=== PATIENT | female | born 1965 | race Two or more races ===

== ENCOUNTER 2018-09-18 23:11 | Emergency (ER) | payer BC ==
[2018-09-18 23:51] VITALS: BP 155/89; PULSE 75; TEMP 99; BMI 25.6
--- NOTE | 2018-09-19 00:42 | PDOC ---
*Physical Exam - Vital Signs Last Vital Signs Temp Pulse Resp BP Pulse Ox 99 F 75 20 155/89 99 09/18/18 23:46 09/18/18 23:46 09/18/18 23:46 09/18/18 23:46 09/18/18 23:46 ED Treatment Course - LABORATORY CBC & Chemistry Diagram: 09/19/18 02:14 09/19/18 02:14 Medical Decision Making - Medical Decision Making 09/19/18 00:42 52-year-old female presenting to the ED with a complaint of dysuria. She has flank pain as well. ? hematuria noted. Laboratory Tests 09/19/18 09/19/18 01:06 02:14 WBC 9.0 Neutrophils % 76.0 Lymphocytes % 12.9 Urine Blood 2+ H Ur Leukocyte Esterase 3+ H Urine WBC (Auto) 422 Urine RBC (Auto) 5 Pt seen by Midlevel Provider under my direct supervision Pt interviewed and examined Ancillary studies reviewed CT - no evidence of obstructing stone Ceftriaxone given Will discharge on Cefuroxime Return precautions given I agree with plan as outlined by Midlevel Provider 09/19/18 03:17 *DC/Admit/Observation/Transfer Diagnosis at time of Disposition: Pyelonephritis - Prescriptions Prescriptions: Cefuroxime Axetil [Cefuroxime] 500 mg PO BID #20 tablet - Referrals - Patient Instructions - Post Discharge Activity
--- NOTE | 2018-09-19 00:42 | PDOC ---
History of Present Illness - General Chief Complaint: Urinary Problem Stated Complaint: URINARY PROBLEM Time Seen by Provider: 09/19/18 00:41 History Source: Patient - History of Present Illness Initial Comments: 09/19/18 01:33 52 year old female c/o urinary frequency x 3 days with increasing pain to suprapubic area and right flank pain. reports feels chills and nausea, denies fever, vomiting Past History - Past Medical History Allergies/Adverse Reactions: Allergies Allergy/AdvReac Type Severity Reaction Status Date / Time No Known Allergies Allergy Verified 09/19/18 02:23 Home Medications: Ambulatory Orders Cefuroxime Axetil [Cefuroxime] 500 mg PO BID #20 tablet 09/19/18 Phenazopyridine HCl [Pyridium -] 100 mg PO PC #14 tablet 09/19/18 - Suicide/Smoking/Psychosocial Hx Smoking History: Unknown if ever smoked Hx Alcohol Use: No Drug/Substance Use Hx: No Review of Systems - Review of Systems Able to Perform ROS?: Yes Is the patient limited [place] Citizen proficient: No Constitutional: Yes: Chills. No: Symptoms Reported, See HPI, Diaphoresis, Fever , Loss of Appetite, Malaise, Night Sweats, Weakness, Weight Stable, Unintentional Wgt. Loss, Unexplained wgt Loss, Other ABD/GI: Yes: Other (suprapubic pain) : Yes: Burning, Dysuria, Frequency, Flank Pain, Hematuria, Urgency *Physical Exam - Vital Signs Last Vital Signs Temp Pulse Resp BP Pulse Ox 99 F 75 20 155/89 99 09/18/18 23:46 09/18/18 23:46 09/18/18 23:46 09/18/18 23:46 09/18/18 23:46 - Physical Exam General Appearance: Yes: Appropriately Dressed Respiratory/Chest: positive: Lungs Clear, Normal Breath Sounds Gastrointestinal/Abdominal: positive: Tender, Other Musculoskeletal: positive: CVA Tenderness, CVA Tenderness (R) Extremity: positive: Normal Capillary Refill, Normal Inspection Neurologic: positive: Fully Oriented ED Treatment Course - LABORATORY CBC & Chemistry Diagram: 09/19/18 02:14 09/19/18 02:14 Medical Decision Making - Medical Decision Making 09/19/18 02:28 CTAP spiral: Cholelithiasis or sludge. Nonobstructing nephrolithiasis *DC/Admit/Observation/Transfer Diagnosis at time of Disposition: Pyelonephritis - Discharge Dispostion Disposition: HOME - Prescriptions Prescriptions: Cefuroxime Axetil [Cefuroxime] 500 mg PO BID #20 tablet Phenazopyridine HCl [Pyridium -] 100 mg PO PC #14 tablet - Referrals - Patient Instructions Printed Discharge Instructions: DI for Kidney Infection Additional Instructions: drink plenty of fluids follow up with your doctor as soon as possible take pyridium for painful urination . it can change the color of your urine to orange. take cefuroxime as ordered and complete the dose - Post Discharge Activity
[2018-09-19] MEDS ORDERED: ONDANSETRON 4 MG/2 ML VIAL IVPUSH ONE (01:21)
[2018-09-19 01:22] LABS: URINE APPEARANCE CLOUDY; URINE BILIRUBIN NEGATIVE (<2.0 mg/dL); URINE COLOR LTYELLOW; URINE GLUCOSE (UA) NEGATIVE (NEGATIVE); URINE KETONE NEGATIVE (NEGATIVE); URINE LEUK ESTERASE 3+ (NEGATIVE); URINE NITRITE NEGATIVE (NEGATIVE); URINE PROTEIN 2+ (NEGATIVE); URINE UROBILINOGEN NEGATIVE mg/dL (0.2-1.0)
[2018-09-19] MEDS ORDERED: SODIUM CHLORIDE 1,000 ML IV STA (01:24)
[2018-09-19 01:26] LABS: EPI CELLS RARE /HPF (FEW); URINE BACTERIA MODERATE /hpf (NONE SEEN)
[2018-09-19] MEDS ORDERED: CEFTRIAXONE 1 GM in DEXTROSE 5%-WATER - 50 ML IVPB ONE (02:21)
[2018-09-19] MEDS ORDERED: PHENAZOPYRIDINE HCL 100 MG TABLET (FP) PO ONE (02:21)
[2018-09-19] MEDS ORDERED: ONDANSETRON 4 MG/2 ML VIAL ONE (02:22)
[2018-09-19] MEDS ORDERED: PHENAZOPYRIDINE HCL 100 MG TABLET (FP) ONE (02:22)
[2018-09-19] MEDS ORDERED: CEFTRIAXONE 1 GM/50 ML BAG ONE (02:22)
[2018-09-19 02:27] LABS: BASO % 0.7 % (0-2.0); EOS % 2.4 % (0-4.5); HEMATOCRIT 41.6 % (32.4-45.2); LYMPH % 12.9 % (8-40); MCH 32.7 pg (25.7-33.7); MCHC 33.7 g/dl (32.0-36.0); MEAN CELL VOLUME 96.8 fl (80-96); MEAN PLT VOLUME 11.5 fl (7.5-11.1); PLATELET COUNT 217 K/MM3 (134-434); RDW 13.2 % (11.6-15.6)
[2018-09-19 02:49] LABS: ALBUMIN 4.2 g/dl (3.4-5.0); ALK PHOS 69 U/L (45-117); ANION GAP 8 MMOL/L (8-16); BILIRUBIN,TOTAL 0.4 mg/dL (0.2-1); BLOOD UREA NITROGEN 13 mg/dL (7-18); CALCIUM 9.6 mg/dL (8.5-10.1); CHLORIDE 101 mmol/L (98-107); CO2 28 mmol/L (21-32); CREATININE 0.7 mg/dL (0.55-1.3); GLUCOSE,RANDOM 92 mg/dL (74-106); SGOT/AST 26 U/L (15-37); SGPT/ALT 27 U/L (13-61); SODIUM 137 mmol/L (136-145); TOT PROT 8.1 g/dl (6.4-8.2)
== END 2018-09-19 03:59 | disposition home or self-care (01) ==
LOC: JER 23:11
PROC: 3E0337Z Introduction of Electrolytic and Water Balance Substance into Peripheral Vein, Percutaneous Approach (ICD-10-PCS; principal; 2018-09-18)
PROC: 3E03329 Introduction of Other Anti-infective into Peripheral Vein, Percutaneous Approach (ICD-10-PCS; 2018-09-18)
PROC: 3E033GC Introduction of Other Therapeutic Substance into Peripheral Vein, Percutaneous Approach (ICD-10-PCS; 2018-09-18)
DX: N12 Tubulo-interstitial nephritis, not specified as acute or chronic (principal); N20.0 Calculus of kidney
CPT/HCPCS: 36415; 74176; 80053; 81003; 81015; 85025; 87040; 87086; 87186; 99281-25; J7030

== ENCOUNTER 2019-03-03 11:40 | Emergency (ER) | payer BC ==
[2019-03-03 11:47] VITALS: BP 146/87; PULSE 86; TEMP 98.1; BMI 25.0
[2019-03-03] MEDS ORDERED: KETOROLAC TROMETHAMINE 30 MG/1 ML VIAL IM ONE (13:04)
[2019-03-03] MEDS ORDERED: KETOROLAC TROMETHAMINE 30 MG/1 ML VIAL ONE (13:06)
[2019-03-03] MEDS ORDERED: SODIUM CHLORIDE 0.9% 500 ML INFUS.BAG IV ONE (13:06)
--- NOTE | 2019-03-03 13:09 | PDOC ---
History of Present Illness - General Chief Complaint: Back Pain Stated Complaint: PAIN Time Seen by Provider: 03/03/19 11:50 History Source: Patient Exam Limitations: No Limitations - History of Present Illness Travel History: No Initial Comments: 03/03/19 14:37 53 year old female with no significant medical or surgical history present with pain in lower back radiating around to lower abdomen since Sunday. Patient states it is getting worse. States has a history kidney stones, and has dysuria. Denies fever, chills or nausea., Timing/Duration: reports: getting worse Quality: reports: moderate Abdominal Pain Onset Location: reports: flank Pain Radiation: reports: periumbilical, flank, groin Activities at Onset: reports: no specific activity Treatment Prior to Arrive: improves with: analgesics Aggravating Factors: improves with: None Alleviating Factors: improves with: Voiding Past History - Travel Traveled outside of the country in the last 30 days: No Close contact w/someone who was outside of country & ill: No - Past Medical History Allergies/Adverse Reactions: Allergies Allergy/AdvReac Type Severity Reaction Status Date / Time No Known Allergies Allergy Verified 03/03/19 11:46 Home Medications: Ambulatory Orders Cyclobenzaprine HCl [Flexeril 10 mg] 10 mg PO BID PRN #6 tablet MDD 2 03/03/19 Ibuprofen [Ibu] 600 mg PO QID #20 tablet 03/03/19 COPD: No - Suicide/Smoking/Psychosocial Hx Smoking History: Never smoked Hx Alcohol Use: No Drug/Substance Use Hx: No Abd/GI Specific PMHX - Complaint Specific PMHX Colitis: No Diverticulitis: No Gall Bladder Disease: No GERD: No Hepatitis: No Irritable Bowel Synd (IBS): No Pancreatitis: No GI Ulcer Disease: No Review of Systems - Review of Systems Able to Perform ROS?: Yes Is the patient limited [place] proficient: No Constitutional: No: Chills, Fever, Loss of Appetite, Malaise HEENTM: No: Nose Congestion, Throat Pain, Throat Swelling Respiratory: No: Cough, Orthopnea, Shortness of Breath, Wheezing, Productive cough Cardiac (ROS): No: Lightheadedness, Palpitations ABD/GI: No: Constipated, Poor Appetite, Poor Fluid Intake, Vomiting, Indigestion : No: Dysuria, Hematuria, Incontinence, Urgency, Testicular Swelling Musculoskeletal: Yes: Back Pain. No: Joint Pain, Joint Swelling, Muscle Pain Integumentary: No: Bruising, Change in Color Neurological: No: Headache, Numbness, Paresthesia *Physical Exam - Vital Signs Last Vital Signs Temp Pulse Resp BP Pulse Ox 98.1 F 86 20 146/87 100 03/03/19 11:46 03/03/19 11:46 03/03/19 11:46 03/03/19 11:46 03/03/19 11:46 - Physical Exam General Appearance: Yes: Nourished, Appropriately Dressed HEENT: positive: TMs Normal, Scleral Icterus (L) Neck: positive: Supple. negative: Lymphadenopathy (R), Lymphadenopathy (L) Respiratory/Chest: positive: Lungs Clear, Normal Breath Sounds Cardiovascular: positive: Regular Rhythm, Regular Rate Female Pelvic Exam: negative: uterus, Urethra Extremity: positive: Normal Capillary Refill Neurologic: positive: wirer helper II-XII NML intact, Fully Oriented ED Treatment Course - LABORATORY CBC & Chemistry Diagram: 03/03/19 13:05 03/03/19 13:05 Medical Decision Making - Medical Decision Making 03/03/19 14:40 53 year old female with no significant medical or surgical history present with pain in lower back radiating around to lower abdomen since . Plan: u/a urine culture abd/pelvic ct analgesia 1 liter of normal saline 03/03/19 14:42 urine: -nitrite labs with no elevated wbc ct: negative for renal calculi Rx: toradol muscle relaxant *DC/Admit/Observation/Transfer Diagnosis at time of Disposition: Back pain Qualifiers: Back pain location: low back pain Chronicity: acute Back pain laterality: bilateral Sciatica presence: without sciatica Qualified Code(s): M54.5 - Low back pain - Discharge Dispostion Disposition: HOME Condition at time of disposition: Good Decision to Admit order: No - Prescriptions Prescriptions: Cyclobenzaprine HCl [Flexeril 10 mg] 10 mg PO BID PRN #6 tablet MDD 2 PRN Reason: Back Pain Ibuprofen [Ibu] 600 mg PO QID #20 tablet - Referrals - Patient Instructions Printed Discharge Instructions: DI for Low Back Pain Additional Instructions: Please take medication as prescribed Activity as tolerated - Post Discharge Activity Forms/Work/School Notes: Back to Work
[2019-03-03] MEDS ORDERED: ONDANSETRON 4 MG/2 ML VIAL IVPB ONE (13:18)
[2019-03-03 13:36] LABS: BASO % 0.8 % (0-2.0); EOS % 1.5 % (0-4.5); HEMATOCRIT 41.8 % (32.4-45.2); LYMPH % 21.6 % (8-40); MCH 33.1 pg (25.7-33.7); MCHC 33.6 g/dl (32.0-36.0); MEAN CELL VOLUME 98.5 fl (80-96); MEAN PLT VOLUME 11.3 fl (7.5-11.1); MONO % 8.8 % (3.8-10.2); NEUT % 67.3 % (42.8-82.8); PLATELET COUNT 164 K/MM3 (134-434); RBC 4.25 M/mm3 (3.60-5.2); WHITE BLOOD COUNT 5.3 K/mm3 (4.0-10.0)
[2019-03-03 13:40] LABS: EPI CELLS 2.1 /HPF (0-5); PH,URINE 5.5 (5.0-8.0); URINE APPEARANCE CLEAR; URINE BACTERIA 3.9 /hpf (NEGATIVE); URINE BILIRUBIN NEGATIVE (NEGATIVE); URINE CASTS 1 /hpf (0-8); URINE COLOR YELLOW; URINE GLUCOSE (UA) NEGATIVE (NEGATIVE); URINE KETONE 1+ (NEGATIVE); URINE LEUK ESTERASE NEGATIVE (NEGATIVE); URINE NITRITE NEGATIVE (NEGATIVE); URINE PROTEIN NEGATIVE (NEGATIVE); URINE RBC 5 /hpf (0-4); URINE WBC 1 /hpf (0-5)
[2019-03-03 14:03] LABS: ALBUMIN 4.1 g/dl (3.4-5.0); ALK PHOS 62 U/L (45-117); ANION GAP 6 MMOL/L (8-16); BILIRUBIN,TOTAL 0.4 mg/dL (0.2-1); BLOOD UREA NITROGEN 12 mg/dL (7-18); CALCIUM 9.4 mg/dL (8.5-10.1); CHLORIDE 102 mmol/L (98-107); CO2 31 mmol/L (21-32); CREATININE 0.6 mg/dL (0.55-1.3); GLUCOSE,RANDOM 87 mg/dL (74-106); POTASSIUM 4.7 mmol/L (3.5-5.1); SGOT/AST 99 U/L (15-37); SGPT/ALT 64 U/L (13-61); SODIUM 138 mmol/L (136-145); TOT PROT 7.7 g/dl (6.4-8.2)
[2019-03-03] MEDS ORDERED: CYCLOBENZAPRINE HCL 10 MG TABLET (FP) PO ONE (14:51)
[2019-03-03] MEDS ORDERED: CYCLOBENZAPRINE HCL 10 MG TABLET (FP) ONE (15:13)
== END 2019-03-03 15:15 | disposition home or self-care (01) ==
LOC: JERFT 11:40
PROC: 3E0233Z Introduction of Anti-inflammatory into Muscle, Percutaneous Approach (ICD-10-PCS; principal; 2019-03-03)
DX: M54.5 Low back pain (principal); Z87.442 Personal history of urinary calculi
CPT/HCPCS: 36415; 74176-TC; 80053; 81003; 85025; 87086; 99281-25

== ENCOUNTER 2019-12-08 09:02 | Emergency (ER) | payer BC ==
[2019-12-08 09:12] VITALS: BMI 25.8
[2019-12-08] MEDS ORDERED: FAMOTIDINE 20 MG/50 ML IVPB 20 MG/50 ML MG IVPB ONE ×2 (10:14→10:31)
[2019-12-08] MEDS ORDERED: SODIUM CHLORIDE 1,000 ML IV STA (10:14)
[2019-12-08] MEDS ORDERED: ACETAMINOPHEN 1000 MG/100 ML VIAL (NON FORMULARY) IVPB ONE (10:14)
[2019-12-08] MEDS ORDERED: ACETAMINOPHEN INJECTION 100 ML IVPB ONE (10:26)
[2019-12-08] MEDS ORDERED: ONDANSETRON 4 MG/2 ML VIAL IVPUSH ONE (10:36)
--- NOTE | 2019-12-08 10:38 | PDOC ---
History of Present Illness - General Chief Complaint: Pain, Acute Stated Complaint: NAUSEA/DIARRHEA Time Seen by Provider: 12/08/19 09:59 History Source: Patient Exam Limitations: No Limitations - History of Present Illness Initial Comments: 12/08/19 10:33 54YOF with h/o HTN (normally takes meds but has not taken them x2 weeks) and abdominoplasty in 2011 who p/w lower abdominal and rectal pain and nausea since 2 am today. She notes that the pain is crampy and colicky, coming on for a minute per episode, with about 15 minutes between episodes. She has been having nonbloody nonbloack diarrhea since the onset of pain. Also has burning on urination without malodorous urine or strange color. Has not tried taking any medication for this. She notes nausea but no vomiting, no f/c, constipation, rash, vaginal bleeding or discharge, rectal bleeding or hemorrhoids, back pain, chest pain, SOB, or other symptoms. Past History - Past Medical History Allergies/Adverse Reactions: Allergies Allergy/AdvReac Type Severity Reaction Status Date / Time No Known Allergies Allergy Verified 12/08/19 09:11 Home Medications: Ambulatory Orders Ciprofloxacin HCl [Cipro] 500 mg PO BID #14 tablet 12/08/19 metroNIDAZOLE [Flagyl -] 500 mg PO TID #21 tablet 12/08/19 COPD: No HTN: Yes - Surgical History Abdominal Surgery: (TUMMY TUCK, BREAST AUGMENTATION) - Psycho Social/Smoking Cessation Hx Smoking History: Never smoked Hx Alcohol Use: Yes Drug/Substance Use Hx: No Abd/GI Specific PMHX - Complaint Specific PMHX Colitis: No Diverticulitis: No Gall Bladder Disease: No GERD: No Hepatitis: No Irritable Bowel Synd (IBS): No Pancreatitis: No GI Ulcer Disease: No Review of Systems - Review of Systems Able to Perform ROS?: Yes Comments:: 12/08/19 10:36 GEN: no fever, chills, malaise, generalized weakness, or weight change HEENT: no ear pain, sore throat, vision change, or eye pain CV: no chest pain, palpitations, lightheadedness, syncope, or edema RESP: no cough, wheezing, or SOB GI: abdominal pain, nausea, no vomiting, diarrhea, constipation, or white/black/ bloody stool : dysuria, no hematuria, incontinence, retention, bleeding, or discharge MSK: no neck/back pain, muscle weakness/pain, or joint swelling/pain NEURO: no headache, seizure, vertigo, numbness, tingling, or focal weakness PSYCH: no substance use, no behavior change SKIN: no jaundice, no rash ROS otherwise negative except as noted in HPI *Physical Exam - Vital Signs Last Vital Signs Temp Pulse Resp BP Pulse Ox 97.9 F 77 16 177/86 H 99 12/08/19 09:09 12/08/19 09:09 12/08/19 09:09 12/08/19 09:09 12/08/19 09:09 - Physical Exam 12/08/19 10:37 GENERAL: initially well-appearing and comfortable, A/Ox4, no distress, answers questions appropriately, but about 5 minutes into the history the patient begins wincing in pain, lasting about 30 seconds then back to appearing comfortable. HEENT: PERRLA, EOMI, moist mucous membranes NECK/BACK: no midline ttp, no spinal stepoff or deformity, no hematoma, full ROM , neck supple CARDIOVASCULAR: regular rate/rhythm, normal S1S2, no MGR, strong peripheral pulses, capillary refill <2 seconds, extremities wwp, no edema LUNGS/RESPIRATORY: no respiratory distress, CTAB GI/ABDOMEN: symmetric ghoh-va-amci, normoactive BS, soft, mild suprapubic and LLQ ttp, no midline pulsatile masses : no CVA tenderness EXTREMITIES: no muscle atrophy, no acute deformity SKIN: warm and dry, no pallor, no jaundice, no rash, no bruising, no skin breakdown, no cuts, no lesions NEUROLOGICAL: GCS 15, CN II-XII grossly intact, 5/5 strength proximally and distally, no facial droop ED Treatment Course - LABORATORY CBC & Chemistry Diagram: 12/08/19 10:30 12/08/19 11:40 - RADIOLOGY Radiology Studies Ordered: Category Date Time Status ABDOMEN & PELVIS CT WITH CONTR [CT] Stat CT Scan 12/08/19 10:18 Ordered - Medications Given in the ED: ED Medications Discontinued Medications Generic Name Dose Route Start Last Admin Trade Name Freq PRN Reason Stop Dose Admin Acetaminophen 1,000 mg 12/08/19 10:14 12/08/19 10:29 Ofirmev Injection - IVPB 12/08/19 10:15 1,000 mg ONCE ONE Administration Medical Decision Making - Medical Decision Making 12/08/19 10:38 Adult female Pt p/w left-sided abdominal pain. Initial Vital Signs Temp Pulse Resp BP Pulse Ox 97.9 F 77 16 177/86 H 99 12/08/19 09:09 12/08/19 09:09 12/08/19 09:09 12/08/19 09:09 12/08/19 09:09 Exam: As noted in Physical Exam section. DDX IBNLT: UTI/pyelonephritis, diverticulitis wwo abscess or perforation, colitis, ovarian torsion, PID, TOA, ovarian cyst, malignancy, hernia, AAA/AD, pancreatitis, appendicitis, gastritis, PUD, ACS, renal colic, SBO, bowel ischemia, bowel perforation, cholecystitis, musculoskeletal, constipation, etc. W/U ordered: CBCD CMP UA UCx GC/Chlamydia/Trich CORNELIO US TX ordered: IVF, Ofirmev, Zofran CT Reassessment: Repeat VS: ADMIT The Pts symptoms persist despite ED treatments. The Pt is unsafe for discharge at this time. They require further hospital observation, workup, and treatment. Microblog sent to [facility] for admission. Blank Decision to Admit order is placed per ED protocol. Spoke with admitting team it sales representative, in agreement Pt to be admitted. Decision to Admit order corrected with admitting team covering attendings name. Decision to Admit order placed to admitting team covering attending. DISCHARGE This patient has gotten significant relief of symptoms while in the ED. On last reassessment, vitals are wnl, pain is reasonably controlled, and exam is benign. Workup is not concerning for emergency-level pathology at this time. This patient is appropriate for discharge with close outpatient follow up. She comfortable with this plan and will follow up with her primary care provider in 1-3 days. Specific return precautions are discussed and they will come back to the ER if necessary. Discharge - Discharge Information Problems reviewed: Yes Clinical Impression/Diagnosis: Colitis Condition: Stable Disposition: HOME - Admission No - Additional Discharge Information Prescriptions: Ciprofloxacin HCl [Cipro] 500 mg PO BID #14 tablet metroNIDAZOLE [Flagyl -] 500 mg PO TID #21 tablet - Follow up/Referral Referrals: Michelle Power MD [Primary Care Provider] - - Patient Discharge Instructions Additional Instructions: You were seen in the ER for abdominal pain. We did an exam, laboratory work on your blood and urine, sent fluid cultures, and did an ultrasound, and we did not find any signs of an emergency cause for your symptoms on the results that we saw. Your pain improved with the medications we gave you here in the ER, and we gave you the first dose of antibiotics here. After our assessment, we believe you are not having a medical emergency and you are safe to go home. 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 Be sure to finish the entire course of antibiotics even if you are feeling better. Please take [id number] Tylenol for pain. Do a clear liquid diet for the next 24-48 hours, and after that, do the BRAT diet (bananas, rice, applesauce, and toast) for a few days before slowly going back to a normal diet. Follow up with your primary care provider(s) in the next 1-3 days. Call their clinic [facility] , tell them you were seen in the ER, and tell them you need an appointment. Please come back to the ER at any time, 24 hours a day, for any new or worsening symptoms, like worsening pain, rectal bleeding, high fever, or other symptoms. If you are having severe or life threatening symptoms, or symptoms that make it unsafe to drive or have someone drive you, please call 911. - Post Discharge Activity
--- NOTE | 2019-12-08 10:48 | PDOC ---
Attending Attestation - Resident Resident Name: Khloe Granados - ED Attending Attestation I have performed the following: I have examined & evaluated the patient, The case was reviewed & discussed with the resident, I agree w/resident's findings & plan - HPI HPI: 12/08/19 10:44 54-year-old female with history of hypertension but no past surgical history presents with lower abdominal cramping and nonbloody diarrhea since around 2 AM , associated chills but no measured fever. Nausea but no anorexia or vomiting, pain is intermittent, not constant. No history of endoscopy or colonoscopy, no history of recurring GI illnesses. no recent travel/antibiotics/sick contacts/diet change. - Physicial Exam PE: 12/08/19 10:45 Afebrile, vital signs stable Alert, ambulatory No jaundice or pallor, moist mucosa Heart is regular, lungs are clear Abdomen is soft/nondistended. Suprapubic/left lower quadrant discomfort to palpation without guarding or rebound, no CVA tenderness. - Medical Decision Making 12/08/19 10:46 Healthy 54-year-old female presents with chills/intermittent lower abdominal cramping since around 2 AM, hemodynamically stable here without focal peritoneal findings on examination. Presentation seems most consistent with enteritis, likely of viral etiology. Given location of pain and reproducible discomfort, rule out colitis/diverticulitis in the absence of history of colonoscopy. 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 Labs, urinalysis IV fluids, antiemetics, pain control CT of the abdomen and pelvis Reassess and disposition accordingly Heart Score/ECG Review #1 ECG reviewed & interpreted by me at: 11:47 General ECG Interpretation: Sinus Rhythm, Normal Rate (93), Normal Intervals ( qtc 482, irbbb qrs 78), No acute ischemic changes
[2019-12-08] MEDS ORDERED: ONDANSETRON 4 MG/2 ML VIAL ONE (10:59)
[2019-12-08 11:00] LABS: BASO % 0.5 % (0-2.0); HEMATOCRIT 42.3 % (32.4-45.2); HEMOGLOBIN 14.7 GM/dL (10.7-15.3); LYMPH % 5.9 % (8-40); MCH 33.9 pg (25.7-33.7); MCHC 34.8 g/dl (32.0-36.0); MEAN CELL VOLUME 97.4 fl (80-96); MEAN PLT VOLUME 11.1 fl (7.5-11.1); MONO % 6.3 % (3.8-10.2); NEUT % 87.3 % (42.8-82.8); PLATELET COUNT 190 K/MM3 (134-434); RBC 4.35 M/mm3 (3.60-5.2); RDW 13.7 % (11.6-15.6); WHITE BLOOD COUNT 7.1 K/mm3 (4.0-10.0)
[2019-12-08 11:11] LABS: URINE APPEARANCE CLEAR; URINE BILIRUBIN NEGATIVE (NEGATIVE); URINE COLOR YELLOW; URINE GLUCOSE (UA) NEGATIVE (NEGATIVE); URINE KETONE 2+ (NEGATIVE); URINE LEUK ESTERASE NEGATIVE (NEGATIVE); URINE NITRITE NEGATIVE (NEGATIVE); URINE PROTEIN NEGATIVE (NEGATIVE); URINE UROBILINOGEN 0.2 mg/dL (0.2-1.0)
[2019-12-08 12:48] LABS: ALBUMIN 3.6 g/dl (3.4-5.0); BILIRUBIN,TOTAL 0.7 mg/dL (0.2-1); BLOOD UREA NITROGEN 9.7 mg/dL (7-18); CALCIUM 8.7 mg/dL (8.5-10.1); CREATININE 0.5 mg/dL (0.55-1.3); MAGNESIUM 1.6 mg/dL (1.8-2.4); POTASSIUM 4.1 mmol/L (3.5-5.1); TOT PROT 7.1 g/dl (6.4-8.2)
[2019-12-08] MEDS ORDERED: metroNIDAZOLE 250 MG TABLET PO ONE (14:42)
[2019-12-08 14:46] VITALS: BP 157/76; PULSE 86; TEMP 98
[2019-12-08] MEDS ORDERED: metroNIDAZOLE 250 MG TABLET ONE (14:47)
--- NOTE | 2019-12-08 15:18 | EKG ---
Test Reason : Blood Pressure : / mmHG Vent. Rate : 093 BPM Atrial Rate : 093 BPM P-R Int : 132 ms QRS Dur : 078 ms QT Int : 388 ms P-R-T Axes : 064 053 047 degrees QTc Int : 482 ms NORMAL SINUS RHYTHM POSSIBLE LEFT ATRIAL ENLARGEMENT PROLONGED QT ABNORMAL ECG NO PREVIOUS ECGS AVAILABLE Confirmed by SAMSON SILVA, ETHAN ([id number]) on 12/08/2019 3:18:42 PM Referred By: Confirmed By:ETHAN DAVIES MD
== END 2019-12-08 15:00 | disposition home or self-care (01) ==
LOC: SUPCPDRO 09:02 → JER 09:02
PROC: 3E033GC Introduction of Other Therapeutic Substance into Peripheral Vein, Percutaneous Approach (ICD-10-PCS; principal; 2019-12-08)
PROC: 3E033GC Introduction of Other Therapeutic Substance into Peripheral Vein, Percutaneous Approach (ICD-10-PCS; 2019-12-08)
PROC: 3E033NZ Introduction of Analgesics, Hypnotics, Sedatives into Peripheral Vein, Percutaneous Approach (ICD-10-PCS; 2019-12-08)
DX: K52.9 Noninfective gastroenteritis and colitis, unspecified (principal); I10 Essential (primary) hypertension; Z91.14 Patient's other noncompliance with medication regimen
CPT/HCPCS: 36415; 74177-TC; 80053; 81003; 83690; 83735; 85025; 87086; 93005; 93010; 99283-25; J0131; J7030; Q9967

== ENCOUNTER 2020-09-07 06:31 | Day surgery (SDC) | payer BC ==
--- OUTSIDE RECORDS SUMMARY | 2020-08-18 19:11 | XMS ---
:1965 Author Organization [facility] Care Team Providers Name Role Phone MARY BETH STONE Unavailable Unavailable Re-disclosure Warning The records that you are about to access may contain information from federally- assisted alcohol or drug abuse programs. If such information is present, then the following federally mandated warning applies: This information has been disclosed to you from records protected by federal confidentiality rules (42 CFR part 2). The federal rules prohibit you from making any further disclosure of this information unless further disclosure is expressly permitted by the written consent of the person to whom it pertains or as otherwise permitted by 42 CFR part 2. A general authorization for the release of medical or other information is NOT sufficient for this purpose. The Federal rules restrict any use of the information to criminally investigate or prosecute any alcohol or drug abuse patient.The records that you are about to access may contain highly sensitive health information, the redisclosure of which is protected by Article 27-F of the [facility] Public Health law. If you continue you may haveaccess to information: Regarding HIV / AIDS; Provided by facilities licensed or operated by the [facility] Office of Mental Health; or Provided by the [facility] Office for People With Developmental Disabilities. If such information is present, then the following [facility] mandated warning applies: This information has been disclosed to you from confidential records which are protected by state law. State law prohibits you from making any further disclosure of this information without the specific written consent of the person to whom it pertains, or as otherwise permitted by law. Any unauthorized further disclosure in violation of state law may result in a fine or skilled nursing sentence or both. A general authorization for the release of medical or other information is NOT sufficient authorization for further disclosure. Encounters Encounter Providers Location Date Indications Data Source(s ) Outpatient Attender: BERTHA, 04/01/2020 Z03.818 [facility] EDUARDOdmitter: 11:15:00 AM Health C are MARY BETH STONE [employer] Z03.818 Insurance Providers Payer name Policy type / Policy ID Covered Covered alliance party's Policy Plan Coverage type alliance party ID relationship to [employer] Information zamora BC OUT OF [id number] SP [id number] [facility] 11 Problems, Conditions, and Diagnoses Code Display Name Description Problem Type Effective Data Sour ce(s) Dates Z03.818 Encounter for ENCNTR FOR OBS Diagnosis 04/01/2020 Angely gillespie observation for FOR SUSP EXPSR TO 11:15:00 AM [facility] [employer] suspected OTH BIOLG AGENTS [employer] poration exposure to other RULED OUT biological agents ruled out Results ID Date Data Source [id number] 07/07/2020 01:32:00 PM EDT [facility] Name Value Range Interpretation Code Description Data Agnieszka rce(s) Supporting Document(s ) SARS-COV-2 [facility] PCR This lab was ordered by [facility] and reported by [facility]. ID Date Data Source [id number] 04/01/2020 12:00:00 AM EDT [facility] Name Value Range Interpretation Code Description Data Agnieszka rce(s) Supporting Document(s ) 2019-nCoV [facility] RNA XXX CORNELIO+probe- Imp This lab was ordered by [facility] and reported by [employer] Procedure
[2020-08-25 16:54] VITALS: BMI 24.8
[~2020-09-07 06:31] MED LIST: CELECOXIB 200 MG CAPSULE PO ONE
--- OUTSIDE RECORDS SUMMARY | 2020-09-07 06:32 | XMS ---
:1965 Author Organization [facility] Care Team Providers Name Role Phone MARY [...] is protected by Article 27-F of the [facility] Public Health law. If you continue you may haveaccess to information: Regarding HIV / AIDS; Provided by facilities licensed or operated by the [facility] Office of Mental Health; or Provided by the [facility] Office for People With Developmental Disabilities. If such information is present, then the following [facility] mandated warning applies: This information has [...] law may result in a fine or snf sentence or both. A general authorization for the release of medical or other information is NOT sufficient authorization for further disclosure. Encounters Encounter Providers Location Date Indications Data Source(s ) Outpatient Attender: BERTHA, 04/01/2020 Z03.818 [facility] EDUARDOdmitter: 11:15:00 AM Health C are MARY BETH STONE [employer] Z03.818 Insurance Providers Payer name Policy type / Policy ID Covered Covered constitution party's Policy Plan Coverage type constitution party ID relationship to Zamora Information zamora [place] [id number] SP [id number] 911 [place] 11 [place] OUT OF [id number] SP [id number] 911 STATE 11 Problems, Conditions, and Diagnoses Code Display Name Description Problem Type Effective Data Sour ce(s) Dates Z03.818 Encounter for ENCNTR FOR OBS Diagnosis 04/01/2020 [facility] observation for FOR SUSP EXPSR TO 11:15:00 AM [employer] suspected OTH BIOLG AGENTS [facility] [facility] [employer] poration exposure to other RULED OUT biological agents ruled out Results ID Date Data Source [id number] 09/03/2020 10:30:00 AM EDT [facility] Name Value Range Interpretation Description Data Sup porting Code Source(s) Document(s ) SARS [facility] coronavirus 2 RNA This lab was ordered by ARNIE FERREIRA and reported by [facility]. ID Date Data Source [id number] 07/07/2020 01:32:00 PM EDT [facility] Name Value Range Interpretation Code Description Data Agnieszka rce(s) Supporting Document(s ) SARS-COV-2 [facility] PCR This lab was ordered by [facility] and reported by [facility]. ID Date Data Source [id number] 04/01/2020 12:00:00 AM EDT [facility] Name Value Range Interpretation Code Description Data Agnieszka rce(s) Supporting Document(s ) 2019-nCoV [facility] RNA XXX CORNELIO+probe- Imp This lab was ordered by [facility] and reported by [employer] Procedure
[2020-09-07] MEDS ORDERED: MIDAZOLAM HCL 2 MG/2 ML SINGLE DOSE VIAL ONE ×2 (06:52→07:53)
[2020-09-07] MEDS ORDERED: BUPIVACAINE HCL/PF 0.5% (5 MG/ML) 30 ML VIAL IJ ONE (06:52)
[2020-09-07] MEDS ORDERED: THROMBIN (RECOMBINANT) 5,000 UNIT VIAL TP ONE (07:18)
[2020-09-07] MEDS ORDERED: ceFAZolin SODIUM 1 GM VIAL ONE ×2 (07:18→08:58)
[2020-09-07] MEDS ORDERED: ROCURONIUM BROMIDE 50 MG/5 ML SYRINGE ONE (07:54)
[2020-09-07] MEDS ORDERED: PROPOFOL 20 ML ONE (07:54)
[2020-09-07] MEDS ORDERED: ONDANSETRON 4 MG/2 ML VIAL IVPUSH PRN ×2 (07:57→11:23)
[2020-09-07] MEDS ORDERED: MAG HYDROX/AL HYDROX/SIMETH 30 ML UNIT-DOSE CUP PO PRN (07:57)
--- NOTE | 2020-09-07 07:59 | HP ---
Satellite [facility] - Chief Complaint Chief Complaint: right knee pain - Past Medical History Allergies/Adverse Reactions: Allergies Allergy/AdvReac Type Severity Reaction Status Date / Time No Known Allergies Allergy Verified 08/25/20 16:43 ...LMP Comment: AGE 50 - Current Medications Current Medications: Home Medications Medication Instructions Recorded Cholecalciferol (Vitamin D3) 600 iu PO DAILY 08/25/20 [Vitamin D3] Ferrous Sulfate, Dried [Iron] 65 mg PO DAILY 08/25/20 Hydrochlorothiazide 12.5 mg PO DAILY 08/25/20 Satellite Physical Exam - Physical Examination Vital Signs: Vital Signs Period Temp Pulse Resp BP Sys/Armendariz Pulse Ox Last 24 Hr 98.2 F 80 18 156/94 99 General Appearance: Well Nourished, Well Developed, Alert & Oriented x3 ENT: Clear Lung: Normal air movement Extremities: Other (right knee- + swelling, + ttp laterally, decr rom, nvi, xrays show grade 4 lateral compartment djd) Neurological: Intact, Alert, Oriented Satellite Impression/Plan - Impression/Plan Impression: right knee lateral djd Operative Procedure: right lateral yovany ukr Date to be Performed: 09/07/20
[2020-09-07] MEDS ORDERED: BUPIVICAINE 0.25%/MORPH PF/KETOROLAC - 51ML DISP.SYRINGE IA ONE ×3 (08:00→09:40)
[2020-09-07] MEDS ORDERED: TRANEXAMIC ACID 1000 MG/10 ML VIAL IVPUSH ONE (08:00)
[2020-09-07] MEDS ORDERED: LACTATED RINGERS SOLUTION 1,000 ML IV SCH (08:00)
[2020-09-07] MEDS ORDERED: CEFAZOLIN 2 GM in DEXTROSE 5%-WATER - 50 ML IVPB ONE (08:00)
[2020-09-07] MEDS ORDERED: BUPIVACAINE HCL/PF 0.5% (5MG/ML) 10 ML VIAL ONE (08:15)
--- NOTE | 2020-09-07 09:56 | OP ---
Operative Note - Note: Operative Date: 09/07/20 (ayesha) Pre-Operative Diagnosis: right knee lateral djd Operation: right lateral yovany ukr Post-Operative Diagnosis: Same as Pre-op Surgeon: Micah Jaimes Psychology Technician: Adalberto Xavier Anesthesiologist/PIPE LINE REPAIRER: Giuseppe Johnson Anesthesia: Spinal, Local Specimens Removed: bone fragments Estimated Blood Loss (mls): 50
[2020-09-07] MEDS ORDERED: FERROUS SULFATE DRIED 65 MG PO SCH (10:00)
[2020-09-07] MEDS ORDERED: PROMETHAZINE HCL 25 MG/1 ML VIAL IVPUSH PRN (11:23)
[2020-09-07] MEDS ORDERED: oxyCODONE HCL 5 MG TABLET PO PRN ×2 (11:23)
--- NOTE | 2020-09-07 12:19 | OP ---
DATE OF OPERATION: 09/07/2020 PREOPERATIVE DIAGNOSIS: Degenerative joint disease, right knee. POSTOPERATIVE DIAGNOSIS: Degenerative joint disease, right knee. PROCEDURE: Right lateral unicompartmental knee replacement with robotic-assisted navigation (JOSÉ MIGUEL plasty). SURGICAL ATTENDING: Micah Jaimes MD MOBILE ELECTRONICS INSTALLER: RAQUEL Marte ANESTHESIA: Regional and spinal. CLOSURE: Lateral JOSÉ MIGUEL components with a 2 femur, 2 tibia, a 10 polyethylene. No. 1 Vicryl fascia, 0 and 2-0 subcutaneous; 3-0 Monocryl subcuticular with skin glue; 4-0 undyed Vicryl for pin sites. ESTIMATED BLOOD LOSS: Negligible. COMPLICATIONS: None. CONDITION: To recovery room in stable condition. TOURNIQUET TIME: Approximately 25 minutes. DESCRIPTION OF PROCEDURE: Patient was taken to the operating room on September 07, 2020. Regional and spinal anesthesia were administered by the anesthesiologist. IV Kefzol and TXA were administered prophylactically prior to the case. A pneumatic tourniquet was placed on the left thigh. Left lower extremity was then prepped and draped in the usual sterile fashion. A longitudinal incision over the lateral side of the knee joint just lateral to the patellar tendon and angulating to the lateral aspect of the patella was incised. Hemostasis was achieved with Bovie cautery. Sharp dissection was carried through the fascia down to the level of the joint. Subperiosteal dissection was done on the anterolateral proximal tibia. Fat pad was excised. The anterior horn of the lateral meniscus was detached and retracted, exposing the lateral compartment. Checkpoints were made on both the tibia and the femur. Through 2 small stab incisions in the femur and on the tibia, 2 threaded pins were placed through the outer cortex and then up into the posterior cortex on both the femur and the tibia 1 handbreadth above and below the knee joint. Through these pins were fastened the navigation arrays. The knee was then registered with the navigation device, ascertaining the center of rotation of hip, medial and lateral malleoli, and multiple points on both the femur and the tibia. Proper registration was confirmed by "popping the bubbles." The osteophytes were then debrided. The knee was taken through a range of motion and stressed into varus. The navigation device ascertained the position in 0, 30, 60, 90, and 120 degrees of flexion with varus pressure being applied. A graft was produced. The virtual position of the component was manipulated until the graft was optimized and the tracking was optimized as well. The robot was then brought into the field and was used to cut the femur and the tibia to the plan as we had decided on the virtual knee. All bone fragments were removed. Meniscal remnants were removed. The knee was thoroughly irrigated and washed. Trial components on both the femur and tibia were applied, followed by polyethylene insert. The 10-mm insert was found to have excellent range of motion from full extension, full flexion, with excellent stability throughout. The navigation device revealed that the patient's valgus had been corrected to just shy of neutral. The trial components were removed, as were the pins in the checkpoint. The leg was Esmarch bandaged, and the tourniquet was inflated to 275 mmHg. The knee was thoroughly cleaned and pulse antibiotic irrigated and then dried. The real components were then cemented in using the modern generation cement techniques using antibiotic cement. The knee was pressurized, and all excess cement was removed. After allowing the cement to harden, the trial polyethylene was removed. The knee was thoroughly inspected to remove all excess cement. The real No. 10 polyethylene was then clipped into place. Range of motion and stability were as described earlier. The fascia was then closed using No. 1 Vicryl interrupted suture. Range of motion post closure revealed excellent repair and excellent tracking throughout. The tourniquet was deflated. Total tourniquet time was less than 25 minutes. The region was infiltrated with a cocktail of lidocaine, Marcaine, morphine, and Toradol. The subcutaneous was closed with 2-0 Vicryl and 3-0 Monocryl subcuticular, with skin glue for skin. The pins were removed and were thoroughly irrigated and closed with 4-0 undyed Vicryl and glue. A sterile Aquacel dressing was applied, as well as a Talley dressing. Patient awakened from anesthesia and transferred to recovery room in stable condition. No complications. Estimated blood loss negligible. Marlyn [id number]
--- OUTSIDE RECORDS SUMMARY | 2020-09-07 12:58 | XMS ---
:1965 Author Organization [facility] Care Team Providers Name Role Phone BERTHA Unavailable Unavailable Re-disclosure Warning The records that [...] is protected by Article 27-F of the [facility] Public Health law. If you continue you may haveaccess to information: Regarding HIV / AIDS; Provided by facilities licensed or operated by the [facility] Office of Mental Health; or Provided by the [facility] Office for People With Developmental Disabilities. If such information is present, then the following [facility] mandated warning applies: This information has been [...] law may result in a fine or long-term sentence or both. A general authorization for the release of medical or other information is NOT sufficient authorization for further disclosure. Encounters Encounter Providers Location Date Indications Data Source(s ) Outpatient Attender: 04/01/2020 Z03.818 [facility] shree KARAdmitter: BERTHA 11:15:00 AM Health [facility] [employer] Z03.818 Insurance Providers Payer name Policy type / Policy ID Covered Covered green party's Policy Plan Coverage type green party ID relationship to Zamora Information zamora [place] OUT OF [id number] SP [id number] 911 STATE 11 [place] OUT OF [id number] SP [id number] 911 STATE 11 Problems, Conditions, and Diagnoses Code Display Name Description Problem Type Effective Data Sour ce(s) Dates Z03.818 Encounter for ENCNTR FOR OBS Diagnosis 04/01/2020 [facility] observation for FOR SUSP EXPSR TO 11:15:00 AM [employer] suspected OTH BIOLG AGENTS [employer] poration exposure to other RULED OUT biological agents ruled out Results ID Date Data Source [id number] 09/03/2020 10:30:00 AM EDT [facility] Name Value Range Interpretation Description Data Sup porting Code Source(s) Document(s ) SARS [facility] coronavirus 2 RNA This lab was ordered by ARNIE hurley [facility] and reported by [facility]. ID Date Data Source [id number] 07/07/2020 01:32:00 PM EDT [facility] Name Value Range Interpretation Code Description Data Agnieszka rce(s) Supporting Document(s ) SARS-COV-2 [facility] PCR This lab was ordered by [facility] and reported by [facility]. ID Date Data Source [id number] 04/01/2020 12:00:00 AM EDT [facility] Name Value Range Interpretation Code Description Data Agnieszka rce(s) Supporting Document(s ) 2019-nCoV [facility] RNA XXX CORNELIO+probe- Imp This lab was ordered by [facility] and reported by [employer] Procedure
[2020-09-07] MEDS: PANTOPRAZOLE 40 MG TABLET PO SCH (13:00)
[2020-09-07] MEDS: SENNOSIDES/DOCUSATE COMBO (SENNA PLUS) TABLET (UD) PO SCH ×2 (13:00→22:54)
[2020-09-07] MEDS: FERROUS SO4 325 MG TABLET (FP) PO SCH (13:00)
[2020-09-07] MEDS: MULTIVITAMINS (DAILY MVI) TABLET (FP) PO SCH (13:00)
[2020-09-07] MEDS: ACETAMINOPHEN 325 MG TABLET (FP) PO SCH ×3 (13:01→22:49)
[2020-09-07] MEDS: CEFAZOLIN 2 GM/D5W 2 GM/50 ML ML IVPB SCH ×2 (17:00→23:31)
[2020-09-07] MEDS: oxyCODONE HCL 10 MG SUSTAINED ACTING TABLET PO SCH (22:46)
[2020-09-08] MEDS: ACETAMINOPHEN 325 MG TABLET (FP) PO SCH ×2 (05:17→11:35)
[2020-09-08] MEDS ORDERED: ASPIRIN 325 MG TABLET PO SCH (08:00)
[2020-09-08] MEDS: oxyCODONE HCL 10 MG SUSTAINED ACTING TABLET PO SCH (09:55)
[2020-09-08] MEDS: FERROUS SO4 325 MG TABLET (FP) PO SCH (09:57)
[2020-09-08] MEDS: MULTIVITAMINS (DAILY MVI) TABLET (FP) PO SCH (09:57)
[2020-09-08] MEDS: SENNOSIDES/DOCUSATE COMBO (SENNA PLUS) TABLET (UD) PO SCH (09:57)
[2020-09-08] MEDS: PANTOPRAZOLE 40 MG TABLET PO SCH (09:57)
[2020-09-08] MEDS ORDERED: HYDROCHLOROTHIAZIDE 12.5 MG CAPSULE (FP) PO SCH (10:00)
--- NOTE | 2020-09-08 11:20 | PN ---
Progress Note (short form) - Note Progress Note: ANESTHESIA POSTOP 54 YO FEMALE POD#1 S/P R PARTIAL KNEE REPLACEMENT Patient sitting in chair. Patient has had some N/V. Pain adequately controlled VSS, Afebrile Continue current care. Encouraged IS and active participation in PT
--- NOTE | 2020-09-08 11:52 | PN ---
Progress Note (short form) - Note Progress Note: Ortho Pt seen and examined s/p right lateral yovany ukr pod #1 Selected Entries 09/08/20 06:00 Temperature 98.3 F Pulse Rate 71 Respiratory 18 Rate Blood Pressure 115/66 dressing c/d/i, rom 0-60, calf soft, nt nvi a/p PT dvt ppx pain control d/c home today f/u in 1 week
--- NOTE | 2020-09-08 11:53 | DS ---
Physical Examination Vital Signs: Vital Signs Temperature 98.3 F 09/08/20 06:00 Pulse Rate 71 09/08/20 06:00 Respiratory Rate 18 09/08/20 06:00 Blood Pressure 115/66 09/08/20 06:00 O2 Sat by Pulse Oximetry (%) 96 09/08/20 06:00 Discharge Summary Problems reviewed: Yes Reason For Visit: OSTEOARTHRITIS Procedures: Principal: right lateral yovany ukr Health Concerns: admitted for elective right lateral yovany ukr, post-op per protocol , stable for d/c Condition: Good - Instructions Diet, Activity, Other Instructions: Post-op Instructions-Partial Knee Replacement Call the office for a follow-up appointment in 1 week - [phone] Aspirin 325mg daily for 6 weeks. Pain medication was sent into your pharmacy. Apply Graduated Compression Stockings (TEDs) to both lower extremities- remove daily for hygiene ONLY Apply Sequential Compression Device (SCDs) to both Lower extremities remove for PT and hygiene ONLY Apply cold packs to affected area for 15 minutes every 2 hours. Physical Therapist will come to your home for the first 5 days. You will be set up with outpatient PT at your first post-operative visit. Patient may ambulate as tolerated-encourage self care (at least every 2-3 hours while awake) with walker or cane Maintain Aquacel (waterproof) dressing to operative wound (will be removed by surgeon at first office visit) Shower with Aquacel dressing in place-if Aquacel integrity compromised, remove and apply dry sterile dressing and notify Orthopedist. DO NOT SHOWER unless Orthopedists approves without Aquacel dressing CONTACT THE OFFICE FOR ANY CHANGE IN YOUR CONDITION (for example-fever greater than 102 degrees, excessive bleeding from operative site, purulent drainage, severe swelling or pain) GO TO THE EMERGENCY ROOM IF THERE IS A MEDICAL EMERGENCY Knee Precautions: * Keep a rolled towel under affected heel while in bed or chair (to keep knee in extension) * Keep affected leg elevated except during mealtimes * DO NOT PLACE PILLOW UNDER AFFECTED KNEE * If you have any questions, please do not hesitate to call the office - [phone]. Referrals: Micah Jaimes MD [Staff Physician] - Disposition: VNS/HOME HEALTH CARE - Home Medications Comprehensive Discharge Medication List: Ambulatory Orders Cholecalciferol (Vitamin D3) [Vitamin D3] 600 iu PO DAILY 08/25/20 Ferrous Sulfate, Dried [Iron] 65 mg PO DAILY 08/25/20 Hydrochlorothiazide 12.5 mg PO DAILY 08/25/20 Aspirin [ASA -] 325 mg PO DAILY@0800 tablet 09/07/20 Oxycodone HCl/Acetaminophen [Percocet 5-325 mg Tablet -] 1 - 2 tab PO Q6H #50 tab MDD 8 09/07/20
[2020-09-08 14:10] VITALS: BP 110/68; PULSE 79; TEMP 98.8
[2020-09-08] MEDS ORDERED: PT OWN MED DRAWER 7, Y5N ONE (14:33)
== END 2020-09-08 16:02 | disposition home health service (06) ==
LOC: FM/S 06:31 → FASUSAT 06:31
PROVIDERS: ATTEND Orthopaedic Surgery
PROC: 8E0YXBZ Computer Assisted Procedure of Lower Extremity (ICD-10-PCS; 2020-09-07)
PROC: 8E0Y0CZ Robotic Assisted Procedure of Lower Extremity, Open Approach (ICD-10-PCS; 2020-09-07)
PROC: 0SRC0M9 Replacement of Right Knee Joint with Lateral Unicondylar Synthetic Substitute, Cemented, Open Approach (ICD-10-PCS; principal; 2020-09-07 08:39)
DX: M17.11 Unilateral primary osteoarthritis, right knee (principal)
CPT/HCPCS: 20985; 27446; C1776; S2900; 73560-TC-RT-FY; 94760; 97010-GP; 97116-GP; 97162-GP

== ENCOUNTER 2021-04-26 06:02 | Day surgery (SDC) | payer BC ==
[2021-04-19 12:19] VITALS: BMI 26.2
[2021-04-26] MEDS ORDERED: CEFAZOLIN 2 GM in DEXTROSE 5%-WATER - 50 ML IVPB ONE (06:27)
[2021-04-26] MEDS ORDERED: TRANEXAMIC ACID 1000 MG/10 ML VIAL IVPUSH ONE (06:27)
[2021-04-26] MEDS ORDERED: CELECOXIB 200 MG CAPSULE PO ONE (06:27)
[2021-04-26] MEDS ORDERED: MIDAZOLAM HCL 2 MG/2 ML SINGLE DOSE VIAL ONE (06:49)
[2021-04-26] MEDS ORDERED: BUPIVACAINE HCL/PF 0.5% (5 MG/ML) 30 ML VIAL IJ ONE (06:49)
[2021-04-26] MEDS ORDERED: SODIUM CHLORIDE 0.9% P/F 10 ML VIAL IJ ONE (06:49)
[2021-04-26] MEDS ORDERED: LOCK ITEM NR ONE (06:54)
[2021-04-26] MEDS ORDERED: PROPOFOL 20 ML ONE ×3 (07:07→09:49)
[2021-04-26] MEDS ORDERED: BUPIVACAINE HCL 50 ML ONE (07:11)
[2021-04-26] MEDS ORDERED: THROMBIN (RECOMBINANT) 5,000 UNIT VIAL TP ONE (07:14)
[2021-04-26] MEDS ORDERED: ceFAZolin SODIUM 1 GM VIAL ONE (07:14)
[2021-04-26] MEDS ORDERED: SUCCINYLCHOLINE CHLORIDE 200 MG/10 ML SYRINGE ONE (07:24)
[2021-04-26] MEDS ORDERED: ONDANSETRON 4 MG/2 ML VIAL IVPUSH PRN ×2 (07:55→10:07)
[2021-04-26] MEDS ORDERED: MAG HYDROX/AL HYDROX/SIMETH 30 ML UNIT-DOSE CUP PO PRN (07:55)
[2021-04-26] MEDS ORDERED: EPHEDRINE SULFATE/0.9% NACL/PF 50 MG/10 ML SYRINGE NR ONE (08:27)
[2021-04-26] MEDS ORDERED: BUPIVICAINE 0.25%/MORPH PF/KETOROLAC - 51ML DISP.SYRINGE IA ONE ×3 (09:21→10:00)
[2021-04-26] MEDS: MULTIVITAMINS (DAILY MVI) TABLET (FP) PO SCH (10:00)
[2021-04-26] MEDS ORDERED: PATIENT'S OWN MEDICATION (NON-FORMULARY) (Hydrochlorothiazide [Hydrochlorothiazide] 12.5 M PO SCH (10:00)
[2021-04-26] MEDS ORDERED: traMADol HCL 50 MG TABLET PO PRN (10:07)
[2021-04-26] MEDS ORDERED: LACTATED RINGERS SOLUTION 1,000 ML IV SCH (10:15)
[2021-04-26] MEDS: ACETAMINOPHEN 1000 MG/100 ML VIAL (NON FORMULARY) IVPB ONE ×2 (10:17→15:57)
[2021-04-26] MEDS: PANTOPRAZOLE 40 MG TABLET PO SCH (12:33)
[2021-04-26] MEDS: LACTATED RINGERS SOLUTION 1,000 ML IV SCH ×2 (12:34→18:05)
[2021-04-26] MEDS: CEFAZOLIN 2 GM/D5W 2 GM/50 ML ML IVPB SCH ×2 (15:23→23:48)
[2021-04-26] MEDS: oxyCODONE HCL 5 MG TABLET PO PRN ×2 (16:39→20:36)
[2021-04-26] MEDS: SENNOSIDES/DOCUSATE COMBO (SENNA PLUS) TABLET (UD) PO SCH (21:27)
[2021-04-27] MEDS: oxyCODONE HCL 5 MG TABLET PO PRN ×3 (00:01→11:29)
[2021-04-27] MEDS ORDERED: ASPIRIN 325 MG TABLET PO SCH (08:00)
[2021-04-27 08:34] VITALS: BP 125/81; PULSE 75; TEMP 98
[2021-04-27] MEDS: SENNOSIDES/DOCUSATE COMBO (SENNA PLUS) TABLET (UD) PO SCH (09:46)
[2021-04-27] MEDS: MULTIVITAMINS (DAILY MVI) TABLET (FP) PO SCH (09:46)
[2021-04-27] MEDS: PANTOPRAZOLE 40 MG TABLET PO SCH (09:47)
[2021-04-27] MEDS ORDERED: HYDROCHLOROTHIAZIDE 12.5 MG CAPSULE (FP) PO SCH (10:00)
== END 2021-04-27 12:19 | disposition home or self-care (01) ==
LOC: FASUSAT 06:02 → FM/S 11:00 → FASUSAT 04-27 12:19
PROVIDERS: ATTEND Orthopaedic Surgery
PROC: 8E0YXBZ Computer Assisted Procedure of Lower Extremity (ICD-10-PCS; 2021-04-26)
PROC: 8E0Y0CZ Robotic Assisted Procedure of Lower Extremity, Open Approach (ICD-10-PCS; 2021-04-26)
PROC: 0SRD0L9 Replacement of Left Knee Joint with Medial Unicondylar Synthetic Substitute, Cemented, Open Approach (ICD-10-PCS; principal; 2021-04-26 08:00)
DX: M17.12 Unilateral primary osteoarthritis, left knee (principal)
CPT/HCPCS: 20985; 27446; C1776; S2900; 73560-TC-LT-FY; 94760; 97010-GP; 97116-GP; 97162-GP; J0131

== ENCOUNTER 2021-09-13 11:50 | Emergency (ER) | payer BC ==
[2021-09-13 12:33] VITALS: TEMP 98.5; BMI 23.3
[2021-09-13] MEDS ORDERED: ACETAMINOPHEN 500 MG TABLET (FP) PO ONE (12:47)
[2021-09-13] MEDS ORDERED: DIPHTH,PERTUSS(ACELL),TET 0.5 ML DISP.SYRIN IM ONE ×2 (12:48→12:56)
[2021-09-13] MEDS ORDERED: ACETAMINOPHEN 325 MG TABLET (FP) ONE (12:56)
[2021-09-13 14:09] LABS: BASO % 0.9 % (0-2.0); EOS % 1.2 % (0-4.5); HEMATOCRIT 44.5 % (32.4-45.2); HEMOGLOBIN 15.2 GM/dL (10.7-15.3); LYMPH % 20.7 % (8-40); MCHC 34.2 g/dl (32.0-36.0); MEAN CELL VOLUME 99.4 fl (80-96); MEAN PLT VOLUME 11.1 fl (7.5-11.1); MONO % 8.3 % (3.8-10.2); NEUT % 68.9 % (42.8-82.8); RBC 4.47 M/mm3 (3.60-5.2); RDW 14.4 % (11.6-15.6); WHITE BLOOD COUNT 6.4 K/mm3 (4.0-10.0)
[2021-09-13 14:15] LABS: ALBUMIN 3.6 g/dl (3.4-5.0); BLOOD UREA NITROGEN 16.7 mg/dL (7-18); CALCIUM 10.1 mg/dL (8.5-10.1)
[2021-09-13 14:18] LABS: CREATININE 0.6 mg/dL (0.55-1.3)
[2021-09-13 14:20] LABS: BILIRUBIN,TOTAL 0.6 mg/dL (0.2-1); TOT PROT 7.9 g/dl (6.4-8.2)
[2021-09-13 15:03] LABS: PLATELET COUNT 172 10^3/uL (134-434)
[2021-09-13 18:33] VITALS: BP 137/86; PULSE 89
[2021-09-13 23:08] LABS: HIV INTERPRETATION NEGATIVE (NEGATIVE)
== END 2021-09-13 18:31 | disposition home or self-care (01) ==
LOC: JER 11:50
PROC: 0HQ1XZZ Repair Face Skin, External Approach (ICD-10-PCS; principal; 2021-09-13)
PROC: 3E0234Z Introduction of Serum, Toxoid and Vaccine into Muscle, Percutaneous Approach (ICD-10-PCS; 2021-09-13)
DX: S01.81XA Laceration without foreign body of other part of head, initial encounter (principal); M25.561 Pain in right knee; W19.XXXA Unspecified fall, initial encounter
CPT/HCPCS: 36415; 70450-TC; 71045-TC-FY; 71101-TC-LT-FY; 72125-TC; 72170-TC-FY; 73030-TC-LT-FY; 73562-TC-LT-FY; 74177-TC; 80053; 85025; 86803; 87389; 90715; 99285-25